=== PATIENT | male | born 1995 | race Hispanic/Latino ===

== ENCOUNTER 2022-05-31 10:50 | Emergency (ER) | payer OTHER ==
[~2022-05-31] VITALS: Ht 175.3 cm; Wt 116.6 kg
[2022-05-31 10:50] VITALS: BP 167/94
--- NOTE | 2022-05-31 10:50 | NUR ---
ARRIVAL PATIENT ARRIVED TO ED6 AMBULATORY,C/O POSSIBLE FOREIGN BODY IN THE RIGHT EYE, PATIENT STATES HE WAS WORKING WITH OIL WHEN HE THINKS OIL SPLASHED IN HIS EYE, DID FLUSH WITH WATER INSPECTOR SUBASSEMBLIES, CAME TO THE ED FOR EVAL, VITAL SIGNS TAKEN AND DOCTOR NOTIFIED OF PATIENT'S ARRIVAL.
[2022-05-31] MEDS ORDERED: TETRACAINE HCL ONE (11:00)
[2022-05-31] MEDS ORDERED: FUL-GLO OP ONE (11:00)
--- NOTE | 2022-05-31 11:08 | ER.PDOC ---
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 At least a small amount of oild made it past his protective gear and got into his R eye. With co- worker assistance he immediately doffed his gear and washed his eye appropriately. No visual changes, no pain or foreign body sensation afterward. Largely healthy from most points of view. Timing/Duration: abrupt Location: right eye Severity: mild Apparent Inury: Yes Context: chemical exposure Where: work Past Medical History Medical History: no pertinent history Surgical History: no surgical history Family History Significant Family History: no pertinent family hx Social History Smoking: non-smoker Reviewed Nursing Reviewed: Vital Signs, Abn. Noted, Nursing Assessment Constitutional: no symptoms reported Eyes: see HPI Ears: no symptoms reported Nose: no symptoms reported Mouth: no symptoms reported Throat: no symptoms reported Respiratory: no symptoms reported Cardiovascular: no symptoms reported Gastrointestinal: no symptoms reported Musculoskeletal: no symptoms reported Skin: no symptoms reported Neurological: no symptoms reported All Other Systems: Reviewed and Negative Physical Exam General Appearance: alert, no distress Visual Acuity: no globe trauma Eyelid: nml inspection Conjunctiva/Sclera: (R) injected (on fluorescein exam, there is a slight area of conjunctival irritation inferonasal region R eye) Corneas: nml inspection Head/ENT: nml inspection Skin Exam: Normal Color (various carbonacious superficial material (sooty/oil substances on a few areas of skin.)) Neck/Back: nml inspection Resp/CVS: lungs clear Abdomen: non-tender (grossly benign) NEURO/PSYCH: oriented X3 Progress Progress A little tobradex and optho followup, especially if symptoms worsen. ER DEPART Departure Time of Disposition: 11:20 Disposition: 01 HOME / SELF CARE / HOMELESS Impression: Primary Impression: Conjunctival irritation Additional Impression: Chemical exposure of eye Condition: Stable Patient Instructions: Eye - Corneal Abrasion, Silu-wr-[id number], Eye Injury-Brief, Eyedrops Referrals: PCP,UNKNOWN (PCP) PRIMARY CARE PROVIDER Additional Instructions: Use the prescribed eyedrops for three days. If your eye becomes painful or you develop any visual problems, follow up with an eye doctor promptly. Duration or Time Spent with Pa: 10 min Problem Qualifiers MICHAEL BURTON MD May 31, 2022 11:08
== END 2022-05-31 11:33 | disposition home or self-care (01) ==
LOC: ER 10:50
DX: H11.421 Conjunctival edema, right eye (principal); Z77.098 Contact with and (suspected) exposure to other hazardous, chiefly nonmedicinal, chemicals
CPT/HCPCS: 99283